=== PATIENT | male | born 1980 | race Caucasian/White ===

== ENCOUNTER 2016-12-04 03:58 | Emergency (ER) | payer OTHER ==
[~2016-12-04] VITALS: Ht 177.8 cm; Wt 116.4 kg
[~2016-12-04 03:58] MED LIST: AUGMENTIN875TAB PO; CIPRO500 MG OR; FLAGYL500 MG OR; FLONASE NASAL50 MCG; LANTUS SC; LISINOP/HCTZ1 TA1 PO; LISINOPRIL20 MG OR; METFORMIN HCL1000 MG PO; METOPROL TAR25 MG PO; NOVOLIN 70/30 SC
[2016-12-04 04:58] LABS: URINE BLOOD DIPSTICK NEGATIVE (NEGATIVE); URINE CLARITY CLEAR; URINE COLOR YELLOW; URINE GLUCOSE - DIPSTICK NEGATIVE (NEGATIVE); URINE KETONE 15 mg/dL (NEGATIVE); URINE LEUK ESTERASE NEGATIVE (NEGATIVE); URINE NITRITE - DIPSTICK NEGATIVE (Negative); URINE PROTEIN - DIPSTICK 100 mg/dL (NEG-TRACE); URINE SPECIFIC GRAVITY >=1.030; URINE UROBILINOGEN - DIPSTICK 0.2 E.U./dL (0.2)
[2016-12-04 05:06] LABS: HEMATOCRIT 48.2 % (39.0-50.0); HEMOGLOBIN 16.1 g/dl (14.0-18.0); IMMATURE GRANULOCYTES 0.5 % (0.0-1.0); MEAN CELL VOLUME 86.7 fL CALC (80.0-100.0); MEAN CORPUSCULAR HGB CONC 33.4 g/L CALC (32.0-36.0); NEUT# 20.86 thou/uL (1.82-7.42); RED BLOOD COUNT 5.56 mill/uL (4.70-6.10)
[2016-12-04 05:23] LABS: URINE BILIRUBIN - DIPSTICK NEGATIVE (NEGATIVE)
[2016-12-04 05:28] LABS: INFLUENZA A NONE DETECTED (NONE DETECT); INFLUENZA B NONE DETECTED (NONE DETECT)
[2016-12-04 05:34] LABS: ALBUMIN 5.3 g/dL (3.2-5.0); ALKALINE PHOSPHATASE 87 u/l (38-126); AMYLASE 72 u/l (30-110); BILIRUBIN, TOTAL 0.9 mg/dL (0.0-1.4); BUN 26 mg/dL (9-20); BUN/CREATININE RATIO 23 (12-20 (CALC)); CALCIUM 10.4 mg/dL (8.4-10.2); CARBON DIOXIDE 23 mmol/l (22-30); CHLORIDE 100 mmol/l (95-108); CREATININE 1.1 mg/dL (0.7-1.3); GFR > 60 ML/MIN (>=60 (CALC)); GFR FOR AFR.AMER. > 60 ML/MIN (>=60 (CALC)); GLUCOSE 279 mg/dL (75-110); LIPASE 129 u/l (23-300); SGOT/AST 51 u/l (17-59); SGPT/ALT 62 u/l (21-72); SODIUM 137 mmol/l (137-146); TOTAL PROTEIN 8.8 g/dL (6.3-8.2)
[2016-12-04 05:44] LABS: ANION GAP 20 (6-22 (CALC)); POTASSIUM 5.8 mmol/l (3.5-5.1)
[2016-12-04 05:44] LABS: URINE BACTERIA MODERATE hpf
[2016-12-04 05:45] LABS: MYOGLOBIN 68 ng/mL (0 - 121)
[2016-12-04 05:45] LABS: URINE FINE GRAN CAST FEW lpf; URINE HYALINE CAST FEW lpf (NONE-RARE)
[2016-12-04 07:52] LABS: HEMATOCRIT 42.2 % (39.0-50.0); HEMOGLOBIN 14.3 g/dl (14.0-18.0); IMMATURE GRANULOCYTES 0.3 % (0.0-1.0); MEAN CELL VOLUME 87.6 fL CALC (80.0-100.0); MEAN CORPUSCULAR HGB 29.7 pG CALC (26.0-32.0); MEAN CORPUSCULAR HGB CONC 33.9 g/L CALC (32.0-36.0); NEUT# 13.53 thou/uL (1.82-7.42); RED BLOOD COUNT 4.82 mill/uL (4.70-6.10)
[2016-12-04] MEDS ORDERED: METRONIDAZOL500 MG PO (08:15)
[2016-12-04] MEDS ORDERED: ZOFRAN4 MG/TAB PO (08:15)
[2016-12-04] MEDS ORDERED: CIPROFLOXACN500 MG PO (08:15)
[2016-12-04 08:18] VITALS: BP 158/69
== END 2016-12-04 08:28 | disposition home or self-care (01) | DRG 392 ==
LOC: ED 03:58
PROVIDERS: Emergency Medicine
DX: K52.9 Noninfective gastroenteritis and colitis, unspecified (principal); R50.9 Fever, unspecified; R11.2 Nausea with vomiting, unspecified; R10.9 Unspecified abdominal pain

== ENCOUNTER 2020-05-06 11:24 | Emergency (ER) | payer OTHER ==
[~2020-05-06] VITALS: Ht 177.8 cm; Wt 113.0 kg
[~2020-05-06 11:24] MED LIST changes: +CIPROFLOXACN500 MG PO; +METRONIDAZOL500 MG PO; +ZOFRAN4 MG/TAB PO
[2020-05-06] MEDS ORDERED: MAXZIDE-2537.5 MG/TA PO (11:35)
[2020-05-06] MEDS ORDERED: LOSARTAN POTASS25 MG PO (11:35)
[2020-05-06] MEDS ORDERED: AMLOD/BENAZP1 CA3 PO (11:36)
[2020-05-06] MEDS ORDERED: ASPIRIN81 MG PO (11:37)
[2020-05-06] MEDS ORDERED: GLIPIZIDE5 MG PO (11:38)
[2020-05-06] MEDS ORDERED: NOVOLOG MIX SC (11:39)
[2020-05-06 11:55] LABS: HEMATOCRIT 44.5 % (39.0-50.0); HEMOGLOBIN 14.7 g/dl (14.0-18.0); IMMATURE GRANULOCYTES 0.2 % (0.0-5.0); MEAN CELL VOLUME 85.7 fL CALC (80.0-100.0); MEAN CORPUSCULAR HGB 28.3 pG CALC (26.0-32.0); NEUT# 7.29 thou/uL (1.82-7.42); RED BLOOD COUNT 5.19 mill/uL (4.70-6.10); RED CELL DISTRI WIDTH 12.9 % (11.5-15.5)
[2020-05-06 12:22] LABS: ALBUMIN 4.9 g/dL (3.2-5.0); ALKALINE PHOSPHATASE 84 u/l (38-126); BUN 16 mg/dL (9-20); BUN/CREATININE RATIO 21 (12-20 (CALC)); CHLORIDE 103 mmol/l (95-108); CREATININE 0.8 mg/dL (0.7-1.3); GFR > 60 ML/MIN (>=60 (CALC)); GFR FOR AFR.AMER. > 60 ML/MIN (>=60 (CALC)); SGOT/AST 24 u/l (17-59); SODIUM 142 mmol/l (137-146); TOTAL PROTEIN 7.9 g/dL (6.3-8.2)
[2020-05-06 12:23] LABS: ANION GAP 15 (6-22 (CALC)); BILIRUBIN, TOTAL 0.3 mg/dL (0.0-1.4); CARBON DIOXIDE 28 mmol/l (22-30); POTASSIUM 4.4 mmol/l (3.5-5.1)
[2020-05-06] MEDS ORDERED: NAPROXEN500 MG PO (12:30)
[2020-05-06] MEDS ORDERED: CYCLOBENZAPRINE10 MG PO (12:30)
[2020-05-06 12:37] VITALS: BP 169/76
== END 2020-05-06 12:47 | disposition home or self-care (01) | DRG 552 ==
LOC: ED 11:24
PROVIDERS: Emergency Medicine
DX: S33.5XXA Sprain of ligaments of lumbar spine, initial encounter (principal); E11.9 Type 2 diabetes mellitus without complications; I10 Essential (primary) hypertension; W18.39XA Other fall on same level, initial encounter; Y93.H2 Activity, gardening and landscaping; Y92.007 Garden or yard of unspecified non-institutional (private) residence as the place of occurrence of the external cause; Z79.84 Long term (current) use of oral hypoglycemic drugs